=== PATIENT | male | born 1995 | race Caucasian/White ===

== ENCOUNTER 2016-06-15 14:40 | Emergency (ER) | payer SELFPAY ==
[2016-06-15 14:56] VITALS: BP 166/85
[2016-06-15] MEDS ORDERED: Bacitracin Oint 1 GM U/D Packet TOP ONE (15:05)
--- NOTE | 2016-06-15 15:12 | EDM.PDOC ---
[id number] 4d INFECTED FINGER ON LEFT HAND Time Seen by Provider: 06/15/16 15:00 Source: Reports: Patient History Limitations: Reports: No limitations - History of Present Illness INITIAL COMMENTS - FREE TEXT/NARRATIVE: 20-year-old male cut his finger nail on a piece of furniture 3 days ago and tore the nail completely off. He wants it looked at to make sure it's healing appropriately, he is concerned he may have infection. Occurred When: other (3 days ago) Severity: mild Associated Symptoms: Reports: denies other symptoms Allergies/ADRs: Allergies No Known Allergies Allergy (Verified 06/15/16 14:52) Home Medications: Ambulatory Orders NK [No Known Home Meds] 06/15/16 [Confirmed 06/15/16] Past Medical History - Past Surgical History GI Surgical History: Reports: Appendectomy Social & Family History - Tobacco Use Smoking Status *Q: Never Smoker - Recreational Drug Use Recreational Drug Use: No Review of Systems - Review of Systems Review Of Systems: ROS reveals no pertinent complaints other than HPI. Trauma Exam - Physical Exam Exam: See Below Exam Limited By: No limitations General Appearance: Reports: alert, no apparent distress Head: Reports: atraumatic Respiratory Exam: Reports: no respiratory distress Extremities: Reports: other (The ring finger on the left hand has a missing nail plate. The nail bed is exposed but not injured. It appears to be healing appropriately without evidence of infection.) Course - Vital Signs Last Recorded V/S: Last Vital Signs Temp 97.1 F 06/15/16 14:51 Pulse 76 06/15/16 14:51 Resp 16 06/15/16 14:51 BP 166/85 H 06/15/16 14:51 Pulse Ox 100 06/15/16 14:51 - Orders/Labs/Meds Meds: Medications Discontinued Medications Generic Name Dose Route Start Last Admin Trade Name Freq PRN Reason Stop Dose Admin Bacitracin 1 dose 06/15/16 15:05 06/15/16 15:11 Bacitracin Oint 1 Gm TOP 06/15/16 15:06 1 dose ONETIME ONE Administration - Re-Assessments/Exams Free Text/Narrative Re-Assessment/Exam: 06/15/16 15:13 Topical bacitracin and a Band-Aid was applied and patient was reassured that this is healing appropriately. He can return anytime if concerns. Departure - Departure Time of Disposition: 15:26 Disposition: Home, Self-Care 01 Condition: good Clinical Impression: Fingernail avulsion, complete Qualifiers: Encounter type: initial encounter Qualified Code(s): S61.309A - Unspecified open wound of unspecified finger with damage to nail, initial encounter Instructions: Nail Avulsion Referrals: PCP,None [Primary Care Provider] - Forms: ED Department Discharge Care Plan Goals: Keep covered and clean while healing. A small amount of antibiotic ointment may be beneficial. Recheck if concerns of infection or not healing satisfactorily.
== END 2016-06-15 15:26 | disposition home or self-care (01) ==
LOC: JP.ED 14:40
DX: S61.305A Unspecified open wound of left ring finger with damage to nail, initial encounter (principal); W45.8XXA Other foreign body or object entering through skin, initial encounter
CPT/HCPCS: 99282; 99283